=== PATIENT | female | born 1985 | race African-American/Black ===

== ENCOUNTER 2018-10-28 02:11 | Emergency (ER) | payer OTHER ==
--- NOTE | 2018-10-28 02:28 | PDOC ---
Attending Attestation - Resident Resident Name: JamiedelbertElsa littlejohn - ED Attending Attestation I have performed the following: I have examined & evaluated the patient, The case was reviewed & discussed with the resident, I agree w/resident's findings & plan - HPI HPI: 10/28/18 05:04 Pt is morbidly obese; she drove from several [facility] to [facility] without stopping in her car; pt is obese, morbidly, and she states that she has a hx of blood clots and she wants to make sure that she has no blood clots. She has pains in her calves and she has a hx of many blood clots. No SOB. She has some CP and she wants meds, but she is refusing IV tylenol. - Physicial Exam PE: 10/28/18 05:07 Agree with resident exam - Medical Decision Making 10/28/18 05:07 Labs; d-dimer and card enzymes; EKG is NSR 10/28/18 06:22 cardiac enzyme is normal. If her D-dimer is normal, she will be discharged home. 10/28/18 06:51 Pt is stable and we are awaiting CBC and ddimer 10/28/18 07:18 CBC normal 10/28/18 07:19 Day team will follow the ddimer and discharge patient. Heart Score/ECG Review - ECG Intrepretation Rhythm: Regular Rhythm - [place]: Normal - P and NH Prominent R with upright T in V1 (true posterior MO): No Delta Wave(s) Present: No WPW: No - QRS Poor R Wave Progression: No Q Wave Present: No - ST and T Early Repolarization: No Non Specific ST-T Wave changes: No Flattened T Waves: No Prolonged Q-T Interval: No - ECG Impressions Normal ECG: Yes Non-specific ST Elevation: No Ischemic Changes: No Bradycardia: Yes
[2018-10-28 03:03] VITALS: BP 138/96; PULSE 75; TEMP 97.9; BMI 35.5
[2018-10-28] MEDS ORDERED: ACETAMINOPHEN 1000 MG/100 ML VIAL (NON FORMULARY) IVPB ONE (03:09)
[2018-10-28] MEDS ORDERED: ACETAMINOPHEN INJECTION 100 ML IVPB ONE (03:16)
--- NOTE | 2018-10-28 03:36 | PDOC ---
History of Present Illness - General Chief Complaint: Chest Pain Stated Complaint: CHEST PAIN Time Seen by Provider: 10/28/18 02:27 History Source: Patient - History of Present Illness Initial Comments: 10/28/18 03:30 33 y/o/f with Protein C and S deficiency here for chest pain and leg swelling. Patient has a history of PEs, last PE was 1 year ago, she was seen at a hospital at [place] at that time. Patient states that her pain feels similar to the last time she had a PE. She drove 7 hours from [place] 3 days ago to visit family. She started to have swelling in her legs after her drive here, swelling is worse in her right leg. She states she has pain with deep breaths. She is on Lovenox 160 BID. She complains of mild shortness of breath. She denies any abd pain, fever, coughs, headache, numbness or other symptoms. PMHx:multiple PEs, Protein C and S deficiency, pulmonary hypertension SHx: skin grafts, tubal ligation, nephrolithotripsy, cholecystectomy Social: Smokes 2-3 packs of cigarettes per week, denies alcohol use Past History - Past Medical History Allergies/Adverse Reactions: Allergies Allergy/AdvReac Type Severity Reaction Status Date / Time fentanyl Allergy Verified 10/28/18 02:17 morphine Allergy Verified 10/28/18 02:17 NSAIDS (Non-Steroidal Allergy Verified 10/28/18 02:17 Anti-Inflamma I.V. contrast Allergy Uncoded 10/28/18 02:17 Home Medications: Ambulatory Orders Amlodipine Besylate [Norvasc -] 5 mg PO DAILY 06/04/16 Aspirin [Aspirin EC] 81 mg PO DAILY 06/04/16 Furosemide [Lasix] 40 mg PO BID 06/04/16 Rivaroxaban [Xarelto -] 20 mg PO DAILY 06/04/16 Albuterol 0.083% Nebulizer Joellen [Ventolin 0.083%] 1 neb NEB Q4H 10/28/18 Enoxaparin [Lovenox -] 160 mg SQ BID 10/28/18 Fluticasone Propionate [Flovent Diskus] 250 mcg IH 10/28/18 Ipratropium 0.02% Nebulizer [Atrovent 0.02% Nebulizer -] 1 amp NEB PRN 10/28/18 Montelukast Na [Singulair -] 10 mg PO HS 10/28/18 Anemia: Yes Asthma: Yes Cardiac Disorders: Yes (CP, PEx5) COPD: No DVT: Yes Other medical history: pulumonary embolism x 6 - Surgical History Abdominal Surgery: Yes (TUBAL LIGATION) - Immunization History Immunization Up to Date: No - Suicide/Smoking/Psychosocial Hx Smoking History: Never smoked Have you smoked in the past 12 months: No Information on smoking cessation initiated: No Hx Alcohol Use: No Drug/Substance Use Hx: No *Physical Exam - Vital Signs Last Vital Signs Temp Pulse Resp BP Pulse Ox 97.9 F 75 18 138/96 100 10/28/18 02:17 10/28/18 02:33 10/28/18 02:33 10/28/18 02:17 10/28/18 02:33 ED Treatment Course - LABORATORY CBC & Chemistry Diagram: 10/28/18 05:43 Medical Decision Making - Medical Decision Making 10/28/18 03:36 -33 y/o/f with Protein C and S deficiency here for chest pain and leg swelling. Patient has a history of PEs, last PE was 1 year ago, she was seen at a hospital at [place] at that time. Patient states that her pain feels similar to the last time she had a PE. She drove 7 hours from [place] 3 days ago to visit family. She started to have swelling in her legs after her drive here, swelling is worse in her right leg. -Workup with: CBC, CMP, d-dimer, cardiac profile, serum HCG, EKG. -IV Tylenol for pain control. 10/28/18 03:37 -Patient refusing Tylenol, states that she wants stronger medication as Tylenol does not help. Morphine allergy documented in chart, patient states she does not have an allergy to Morphine. -Patient also stating that she can only have a 24 gauge IV as her veins are clotted. Patient told nurse that the only place she has success with her IVs are in her breast. Spoke with patient that we will attempt to place an IV in her arm with ultrasound guidance. Patient refusing, requesting to talk with attending physician. 10/28/18 06:24 -Convinced patient to let us draw blood, labs pending. Trops negative. -Patient given 2mg IM morphine for pain control. *DC/Admit/Observation/Transfer Diagnosis at time of Disposition: Chest pain Qualifiers: Chest pain type: unspecified Qualified Code(s): R07.9 - Chest pain, unspecified - Discharge Dispostion Disposition: HOME Condition at time of disposition: Stable - Referrals Referrals: ON STAFF,NOT [Primary Care Provider] - - Patient Instructions Printed Discharge Instructions: DI for Atypical Chest Pain Additional Instructions: Please see your Primary Doctor within the next 48 hours.Continue taking your home dosed medications as prescribed. Return to the nearest ER for new or concerning symptoms including but not limited to: significant chest pain, difficulty breathing, swelling or calf tenderness in 1 leg greater than the other. Thank you - Post Discharge Activity
[2018-10-28] MEDS ORDERED: morphine CARPU-JECT 2 MG/1 ML DISP.SYRIN IM ONE (05:04)
[2018-10-28] MEDS ORDERED: MORPHINE SULFATE 2 MG/ML VIAL ONE (05:14)
[2018-10-28 05:59] LABS: BASO % 0.3 % (0-2.0); EOS % 1.6 % (0-4.5); HEMATOCRIT 34.5 % (32.4-45.2); HEMOGLOBIN 11.8 GM/dL (10.7-15.3); LYMPH % 32.4 % (8-40); MCH 29.5 pg (25.7-33.7); MCHC 34.3 g/dl (32.0-36.0); MEAN CELL VOLUME 85.9 fl (80-96); MEAN PLT VOLUME 8.2 fl (7.5-11.1); MONO % 6.3 % (3.8-10.2); NEUT % 59.4 % (42.8-82.8); PLATELET COUNT 292 K/MM3 (134-434); RBC 4.02 M/mm3 (3.60-5.2); RDW 13.3 % (11.6-15.6); WHITE BLOOD COUNT 7.6 K/mm3 (4.0-10.0)
--- NOTE | 2018-10-28 08:04 | PDOC ---
*Physical Exam - Vital Signs Last Vital Signs Temp Pulse Resp BP Pulse Ox 97.9 F 75 18 138/96 100 10/28/18 02:17 10/28/18 02:33 10/28/18 02:33 10/28/18 02:17 10/28/18 02:33 ED Treatment Course - LABORATORY CBC & Chemistry Diagram: 10/28/18 05:43 - ADDITIONAL ORDERS Additional order review: Laboratory Results 10/28/18 10/28/18 05:43 05:43 D-Dimer 295 Creatine Kinase 166 Creatine Kinase Index No Result Required. CK-MB (CK-2) < 1.0 Troponin I < 0.02 10/28/18 05:43 RBC 4.02 MCV 85.9 MCHC 34.3 RDW 13.3 MPV 8.2 Neutrophils % 59.4 D Lymphocytes % 32.4 D Monocytes % 6.3 D Eosinophils % 1.6 Basophils % 0.3 - Medications Given in the ED: ED Medications Discontinued Medications Generic Name Dose Route Start Last Admin Trade Name Andie PRN Reason Stop Dose Admin Acetaminophen 1,000 mg 10/28/18 03:09 10/28/18 03:39 Ofirmev Injection - IVPB 10/28/18 03:10 Not Given ONCE ONE Morphine Sulfate 2 mg 10/28/18 05:04 10/28/18 05:27 Morphine Injection - IM 10/28/18 05:05 2 mg ONCE ONE Administration Medical Decision Making - Medical Decision Making 10/28/18 08:04 S/O from night team, pending D dimer for possible PE/DVT in short, 33 yo female reports protein C and S def presents with CP and leg swelling, last PE 1 year ago D dimer neg, no DVT or PE, trops neg, Pt safe for DC home *DC/Admit/Observation/Transfer Diagnosis at time of Disposition: Chest pain - Discharge Dispostion Disposition: HOME Condition at time of disposition: Stable - Referrals Referrals: ON STAFF,NOT [Primary Care Provider] - - Patient Instructions Printed Discharge Instructions: DI for Atypical Chest Pain Additional Instructions: Please see your Primary Doctor within the next 48 hours.Continue taking your home dosed medications as prescribed. Return to the nearest ER for new or concerning symptoms including but not limited to: significant chest pain, difficulty breathing, swelling or calf tenderness in 1 leg greater than the other. Thank you - Post Discharge Activity
--- NOTE | 2018-10-29 07:08 | EKG ---
Test Reason : Blood Pressure : / mmHG Vent. Rate : 056 BPM Atrial Rate : 056 BPM P-R Int : 166 ms QRS Dur : 088 ms QT Int : 468 ms P-R-T Axes : 044 041 046 degrees QTc Int : 451 ms SINUS BRADYCARDIA WITH SINUS ARRHYTHMIA OTHERWISE NORMAL ECG WHEN COMPARED WITH ECG OF 04-JUN-2016 07:10, NO SIGNIFICANT CHANGE WAS FOUND Confirmed by VERO FALLON MD ([id number]) on 10/29/2018 7:08:30 AM Referred By: Confirmed By:VERO FALLON MD
== END 2018-10-28 08:50 | disposition home or self-care (01) ==
LOC: JER 02:11
PROC: 3E023NZ Introduction of Analgesics, Hypnotics, Sedatives into Muscle, Percutaneous Approach (ICD-10-PCS; principal; 2018-10-28)
DX: R07.9 Chest pain, unspecified (principal); Z86.718 Personal history of other venous thrombosis and embolism; Z86.711 Personal history of pulmonary embolism; Z79.01 Long term (current) use of anticoagulants; D68.59 Other primary thrombophilia
CPT/HCPCS: 36415; 82550; 82553; 84484; 85025; 85379; 93005; 93010; 96372; 99284-25